=== PATIENT | female | born 1965 | race Caucasian/White ===

== ENCOUNTER 2020-09-21 17:40 | Observation (INO) | payer BC ==
[2020-09-21] MEDS ORDERED: cefOXitin 2 GM in Premix Bag 1 BAG IV ONE (21:04)
--- NOTE | 2020-09-21 21:11 | PCM.HP.2 ---
H&P History of Present Illness - General Date of Service: 09/21/20 Admit Problem/Dx: Admission Diagnosis/Problem Admission Diagnosis/Problem Appendicitis Source of Information: Patient, Family History Limitations: Reports: No Limitations - History of Present Illness Initial Comments - Free Text/Narative: Patient is a 55-year-old female who was seen in the emergency room in [place] earlier today complaining of right lower quadrant pain. She has been having trouble with diarrhea for the last 2-3 weeks. That started after she had been placed on Augmentin. She normally has trouble with alternating diarrhea and constipation. This morning when she awakened she stated the pain migrated to the right lower quadrant and has remained there all day. She denies any fever, chills, nausea or vomiting. She has still been having some diarrheal stools. She does note pain on ambulation and states that the pain was more intense as they were traveling to [place] if they hit a bump in the road. She has never had anything like this in the past. Onset of Symptoms: Reports: Today Duration of Symptoms: Reports: Getting Worse Location: Reports: Abdomen Quality: Reports: Pressure, Throbbing Severity: Moderate Improves with: Reports: Rest Worsens with: Reports: Movement Context: Denies: Sick Contact Associated Symptoms: Reports: Other (Diarrhea). Denies: Confusion, Chest Pain, Fever/Chills, Nausea/Vomiting - Related Data Allergies/Adverse Reactions: Allergies Allergy/AdvReac Type Severity Reaction Status Date / Time No Known Allergies Allergy Verified 09/21/20 20:40 Home Medications: Home Meds Biotin/Calcium Carbonate [Biotin 800 MCG] 1 each PO DAILY 09/21/20 [History] Econazole [Spectazole 1% Crm] 85 gm TOP BID 09/21/20 [History] Estradiol/Norethindrone Acet [Amabelz 0.5 mg-0.1 mg Tablet] 1 each PO ASDIRECTED 09/21/20 [History] Pantoprazole [ProTONIX] 40 mg PO DAILY 09/21/20 [History] atorvaSTATin [Lipitor] 10 mg PO BEDTIME 09/21/20 [History] Past Medical History Cardiovascular History: Reports: High Cholesterol Other OB/BYN History: Patient has had 2 or 3 D&Cs, for miscarriages. - Past Surgical History Female Surgical History: Reports: Dilitation & Evacuation Social & Family History - Tobacco Use Tobacco Use Status *Q: Never Tobacco User - Alcohol Use Alcohol Use History: Yes Alcohol Use Frequency: Socially H&P Review of Systems - Review of Systems: Review Of Systems: See Below General: Denies: Fever, Chills, Malaise, Weakness, Decreased Appetite HEENT: Reports: No Symptoms Pulmonary: Denies: Shortness of Breath, Wheezing Cardiovascular: Denies: Chest Pain, Palpitations Gastrointestinal: Reports: Abdominal Pain, Diarrhea, Decreased Appetite. Denies: Anorexia, Nausea, Vomiting Genitourinary: Denies: Dysuria, Frequency, Burning, Pain, Urgency Musculoskeletal: Reports: No Symptoms Skin: Reports: No Symptoms Psychiatric: Reports: Anxiety. Denies: Confusion, Depression Neurological: Reports: No Symptoms Hematologic/Lymphatic: Reports: No Symptoms Immunologic: Reports: No Symptoms Exam - Exam Exam: See Below - Exam Quality Assessment: No: Supplemental Oxygen, Central Line/PICC, Urinary Catheter General: Alert, Oriented, Cooperative, Mild Distress HEENT: Conjunctiva Clear, Nares Patent, Pupils Equal, Pupils Reactive, PERRLA. No: Scleral Icterus Neck: Supple, Trachea Midline Lungs: Clear to Auscultation, Normal Respiratory Effort. No: Wheezing Cardiovascular: Regular Rate, Regular Rhythm, Normal S1, Normal S2. No: Tachycardia GI/Abdominal Exam: Normal Bowel Sounds, Soft, No Distention, Rebound, Tender. No: Guarding, Rigid (Female) Exam: Deferred Rectal (Female) Exam: Deferred Back Exam: Normal Inspection, Full Range of Motion Extremities: Normal Inspection, Normal Range of Motion, Non-Tender, No Pedal Edema Peripheral Pulses: 4+: Posterior Tibial (L), Posterior Tibial (R), Dorsalis Pedis (L), Dorsalis Pedis (R) Skin: Warm, Dry, Intact Neuro Extensive - Mental Status: Alert, Oriented x3, Normal Mood/Affect, Normal Cognition Psychiatric: Alert, Normal Affect, Normal Mood - Problem List (1) Appendicitis SNOMED Code(s): 59357101 ICD Code: K37 - UNSPECIFIED APPENDICITIS Status: Acute Priority: High Qualifiers: Appendicitis type: acute appendicitis Acute appendicitis type: with localized peritonitis Appendicitis gangrene presence: unspecified whether gangrene present Appendicitis abscess presence: without abscess Problem List Initiated/Reviewed/Updated: Yes Orders Last 24hrs: Active Orders 24 hr Category Date Time Status Patient Status [ADT] Routine ADT 09/21/20 21:03 Ordered Antiembolic Devices [RC] PER UNIT ROUTINE Care 09/21/20 21:02 Ordered Insert Urinary Catheter [OM.PC] Timed Care 09/21/20 21:02 Ordered Oxygen Therapy [RC] ASDIRECTED Care 09/21/20 21:02 Ordered RT Incentive Spirometry [RC] Q1HWA Care 09/21/20 21:02 Ordered Skin Preparation [RC] .PREOP Care 09/21/20 21:02 Ordered Urinary Catheter Assessment [RC] ASDIRECTED Care 09/21/20 21:02 Ordered Urinary Catheter Assessment [RC] ASDIRECTED Care 09/21/20 21:02 Ordered Urinary Catheter Assessment [RC] ASDIRECTED Care 09/21/20 21:02 Ordered Vital Signs [RC] PER UNIT ROUTINE Care 09/21/20 21:02 Ordered Nothing Per Oral Diet [DIET] Diet 09/21/20 Dinner Ordered Lactated Ringers @ 125 MLS/HR(1000ml) Med 09/21/20 21:15 Ordered Lactated Ringers [Ringers, Lactated] 1,000 ml IV ASDIRECTED Morphine Med 09/21/20 21:05 Ordered See Dose Instructions IVPUSH Q1H PRN Ondansetron [Zofran] Med 09/21/20 21:06 Ordered 4 mg IVPUSH Q6H PRN cefOXitin [Mefoxin in Dextrose,Iso-Osm 2 GM/50 ML] 2 gm Med 09/21/20 21:04 Ordered Premix Bag 1 bag IV ONETIME cefOXitin [Mefoxin] 1 gm Med 09/22/20 03:00 Ordered Sodium Chloride 0.9% [Normal Saline] 50 ml IV Q6HR Antiembolic Hose [OM.PC] Routine Oth 09/21/20 21:02 Ordered Resuscitation Status Routine Resus Stat 09/21/20 21:[address] scan of the abdomen has personally been reviewed. There is thickening of the appendix with some mild periappendiceal fat stranding. I did not see any appendicolith or fluid around the appendix. No fluid noted in the pelvis. Despite her normal white count. Her examination is very consistent with an early acute appendicitis. Assessment/Plan Comment:: Laparoscopic appendectomy, possible open appendectomy. Both operative procedures, along with the risks, including, but not limited to, bleeding, infection, pneumonia, deep venous thrombosis, pulmonary emboli, myocardial infarction, and adjacent organ injury have been reviewed with the patient who voices understanding, offers no questions and agrees to proceed. We have also discussed the possibility of treating this with antibiotics to see if she resolves. Discussed the fact that there is a 20-25% chance that she would require an appendectomy within the next year. She underwent wish to pr oceed with an appendectomy, which will be done tomorrow morning. Patient will be started on antibiotics and given morphine for pain control tonight. - Mortality Measure Prognosis:: Good
[2020-09-21] MEDS ORDERED: Lactated Ringers 1,000 ML IV SCH (21:15)
[2020-09-21] MEDS: Ondansetron 4 MG/2 ML SDV IVPUSH PRN (22:32)
[2020-09-21] MEDS: Morphine 4 MG/ML Syringe IVPUSH PRN (22:36)
[2020-09-22] MEDS: Morphine 4 MG/ML Syringe IVPUSH PRN (01:32)
[2020-09-22] MEDS ORDERED: cefOXitin 1 GM in Premix Bag 1 BAG IV SCH (03:00)
[2020-09-22] MEDS ORDERED: Sugammadex Sodium 200 MG/2 ML VIAL ONE (06:21)
[2020-09-22] MEDS ORDERED: Midazolam 1 MG/ML 2 ML SDV ONE (06:23)
[2020-09-22] MEDS ORDERED: fentaNYL 250 MCG/5 ML SDV ONE (06:23)
[2020-09-22] MEDS ORDERED: Propofol 200 MG/20 ML SDV ONE (06:23)
[2020-09-22] MEDS ORDERED: ceFAZolin 1 GM Vial ONE (06:30)
[2020-09-22] MEDS ORDERED: Bupivacaine 0.5% 10 ML SDV ONE (06:30)
[2020-09-22] MEDS ORDERED: Rocuronium Bromide 50 MG/5 ML Syringe ONE ×2 (06:48→06:49)
[2020-09-22] MEDS ORDERED: Lidocaine 2% 5 ML SDV ONE (06:49)
[2020-09-22] MEDS ORDERED: Ondansetron 4 MG/2 ML SDV ONE (06:49)
[2020-09-22] MEDS ORDERED: Ketorolac 30 MG/ML SDV ONE (06:49)
[2020-09-22] MEDS ORDERED: Glycopyrrolate 0.2 MG/ML SDV ONE (06:49)
[2020-09-22] MEDS ORDERED: Acetaminophen 1,000 MG in Premix Bag 1 BAG IV PRN (06:57)
[2020-09-22] MEDS ORDERED: fentaNYL 100 MCG/2 ML SDV IVPUSH PRN (06:57)
--- NOTE | 2020-09-22 06:57 | PCM.PREANE ---
Preanesthetic Assessment - Anesthesia/Transfusion/Family Hx Anesthesia History: Prior Anesthesia Without Reaction Other Type of Anesthesia Reaction Comment: Nausea Family History of Anesthesia Reaction: No Transfusion History: No Prior Transfusion(s) - Review of Systems Gastrointestinal: Abdominal Pain, Nausea - Physical Assessment NPO Status Date: 09/22/20 NPO Status Time: 00:05 Vital Signs: Last Vital Signs Temp 36.8 C 09/22/20 03:17 Pulse 81 09/22/20 03:17 Resp 18 09/22/20 03:17 BP 136/76 09/22/20 03:17 Pulse Ox 96 09/22/20 03:17 Height: 1.63 m Weight: 67.404 kg ASA Class: 2E - Allergies Allergies/Adverse Reactions: Allergies Allergy/AdvReac Type Severity Reaction Status Date / Time No Known Allergies Allergy Verified 09/21/20 23:48 - Acknowledgements Anesthesia Type Planned: General Anesthesia Pt an Appropriate Candidate for the Planned Anesthesia: Yes Alternatives and Risks of Anesthesia Discussed w Pt/Guardian: Yes Pt/Guardian Understands and Agrees with Anesthesia Plan: Yes PreAnesthesia Questionnaire Cardiovascular History: Reports: High Cholesterol Gastrointestinal History: Reports: GERD Other OB/BYN History: Patient has had 2 or 3 D&Cs, for miscarriages. - Past Surgical History Female Surgical History: Reports: Dilitation & Evacuation - SUBSTANCE USE Tobacco Use Status *Q: Never Tobacco User Recreational Drug Use History: No - HOME MEDS Home Medications: Home Meds Biotin/Calcium Carbonate [Biotin 800 MCG] 1 each PO DAILY 09/21/20 [History] Econazole [Spectazole 1% Crm] 85 gm TOP BID 09/21/20 [History] Estradiol/Norethindrone Acet [Amabelz 0.5 mg-0.1 mg Tablet] 1 each PO ASDIRECTED 09/21/20 [History] Pantoprazole [ProTONIX] 40 mg PO DAILY 09/21/20 [History] atorvaSTATin [Lipitor] 10 mg PO BEDTIME 09/21/20 [History] - CURRENT (IN HOUSE) MEDS Current Meds: Current Medications Lactated Ringer's (Ringers, Lactated) 1,000 mls @ 125 mls/hr IV ASDIRECTED LILA Last Admin: 09/21/20 23:15 Dose: 125 mls/hr Documented by: Cefoxitin Sodium 1 gm/ Premix 50 mls @ 100 mls/hr IV Q6H [facility] Stop: 09/22/20 21:29 Last Admin: 09/22/20 03:19 Dose: 100 mls/hr Documented by: Morphine Sulfate (Morphine 4 Mg/Ml Syringe) 0 mg IVPUSH Q1H PRN PRN Reason: Pain (severe 7-10) Last Admin: 09/22/20 01:32 Dose: 2 mg Documented by: Ondansetron HCl (Ondansetron 4 Mg/2 Ml Sdv) 4 mg IVPUSH Q6H PRN PRN Reason: Nausea/Vomiting Last Admin: 09/21/20 22:32 Dose: 4 mg Documented by: Discontinued Medications Bupivacaine HCl (Bupivacaine 0.5% 10 Ml Sdv) Confirm Administered Dose 10 ml .ROUTE .STK-MED ONE Stop: 09/22/20 06:31 Cefazolin Sodium (Cefazolin 1 Gm Vial) Confirm Administered Dose 1 gm .ROUTE .STK-MED ONE Stop: 09/22/20 06:31 Fentanyl (Fentanyl 250 Mcg/5 Ml Sdv) Confirm Administered Dose 250 mcg .ROUTE .STK-MED ONE Stop: 09/22/20 06:24 Glycopyrrolate (Glycopyrrolate 0.2 Mg/Ml Sdv) Confirm Administered Dose 0.2 mg .ROUTE .STK-MED ONE Stop: 09/22/20 06:50 Cefoxitin Sodium 2 gm/ Premix 50 mls @ 100 mls/hr IV ONETIME ONE Stop: 09/21/20 21:33 Last Admin: 09/21/20 22:25 Dose: 100 mls/hr Documented by: Cefoxitin Sodium 1 gm/ Sodium (Chloride) 50 mls @ 100 mls/hr IV Q6HR [facility] Stop: 09/22/20 18:29 Ketorolac Tromethamine (Ketorolac 30 Mg/Ml Sdv) Confirm Administered Dose 30 mg .ROUTE .STK-MED ONE Stop: 09/22/20 06:50 Lidocaine (Lidocaine 2% 5 Ml Sdv) Confirm Administered Dose 5 ml .ROUTE .STK-MED ONE Stop: 09/22/20 06:50 Midazolam HCl (Midazolam 1 Mg/Ml 2 Ml Sdv) Confirm Administered Dose 2 mg .ROUTE .STK-MED ONE Stop: 09/22/20 06:24 Ondansetron HCl (Ondansetron 4 Mg/2 Ml Sdv) Confirm Administered Dose 4 mg .ROUTE .STK-MED ONE Stop: 09/22/20 06:50 Propofol (Propofol 200 Mg/20 Ml Sdv) Confirm Administered Dose 200 mg .ROUTE .STK-MED ONE Stop: 09/22/20 06:24 Rocuronium [place] (Rocuronium [place] 50 Mg/5 Ml Syringe) Confirm Administered Dose 50 mg .ROUTE .[employer]-MED ONE Stop: 09/22/20 06:49 Rocuronium [place] (Rocuronium [place] 50 Mg/5 Ml Syringe) Confirm Administered Dose 50 mg .ROUTE .[employer]-MED ONE Stop: 09/22/20 06:50 Sugammadex Sodium (Sugammadex Sodium 200 Mg/2 Ml Vial) Confirm Administered Dose 200 mg .ROUTE .STFlittoMED ONE Stop: 09/22/20 06:22
[2020-09-22] MEDS ORDERED: HYDROmorphone 2 MG/ML Syringe ONE (07:16)
[2020-09-22] MEDS ORDERED: Morphine 4 MG/ML Syringe IVPUSH PRN (08:31)
[2020-09-22] MEDS ORDERED: Acetaminophen/HYDROcodone 325-5 MG Tab PO PRN (08:31)
--- NOTE | 2020-09-22 08:37 | PCM.OPNOTE ---
- General Post-Op/Procedure Note Date of Surgery/Procedure: 09/22/20 Operative Procedure(s): Laparoscopic appendectomy Pre Op Diagnosis: Acute abdomen Post-Op Diagnosis: Acute appendicitis with localized peritonitis Anesthesia Technique: General ET Tube (ASA IIE) Primary Surgeon: Dayton Gonzalez Jewelry Dipper: Nati Bhatt Fluid Replacement, Intraop: 1,500 Output, Urine Amount: 50 EBL in mLs: 5 Condition: Good Free Text/Narrative:: Intake & Output 09/21/20 09/22/20 09/22/20 19:59 03:59 11:59 Intake Total 50 250 Output Total 650 Balance 50 -400 DICTATION [id number] CPT CODE [id number]
--- NOTE | 2020-09-22 08:43 | PCM.POSTAN ---
POST ANESTHESIA ASSESSMENT - MENTAL STATUS Mental Status: Alert, Oriented - VITAL SIGNS Vital Signs: Last Vital Signs Temp 98.2 F 09/22/20 03:17 Pulse 81 09/22/20 03:17 Resp 18 09/22/20 03:17 BP 136/76 09/22/20 03:17 Pulse Ox 96 09/22/20 03:17 - RESPIRATORY Respiratory Status: Respiratory Rate WNL, Airway Patent, O2 Saturation Stable - CARDIOVASCULAR CV Status: Pulse Rate WNL, Blood Pressure Stable - GASTROINTESTINAL GI Status: No Symptoms - PAIN Pain Score: 0 - POST OP HYDRATION Hydration Status: Adequate & Stable
[2020-09-22] MEDS: Ondansetron 4 MG/2 ML SDV IVPUSH PRN ×3 (09:04→19:37)
[2020-09-22] MEDS: cefOXitin 1 GM in Premix Bag 1 BAG IV SCH ×2 (09:11→18:13)
--- NOTE | 2020-09-22 10:35 | OR ---
SURGEON: Dayton Gonzalez M.D. DATE OF PROCEDURE: 09/22/2020 OPERATION PERFORMED: Laparoscopic appendectomy. PRIMARY SURGEON: Dayton Gonzalez M.D. 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 ANESTHESIA: General endotracheal. ASA CLASSIFICATION: IIE. PREOPERATIVE DIAGNOSIS: Acute abdomen with early appendicitis. POSTOPERATIVE DIAGNOSIS: Early acute appendicitis without perforation. INTRAOPERATIVE FLUIDS: 1500 mls EBL: 5 ml URINE OUTPUT 50 mls. DESCRIPTION OF PROCEDURE: The patient was taken to the operating room and placed on the operating table in the supine position. A time-out was called for appropriate identification of the patient and procedure. Sequential compression boots were placed. Following satisfactory attainment of general endotracheal anesthesia, a Leo catheter was placed in the patient's urinary bladder. The abdomen was prepped with DuraPrep solution and sterile drapes were applied. The skin just above the umbilicus was infiltrated with 0.5% Marcaine solution. A skin incision was then made and hemostasis obtained with the use of electrocautery. The Veress needle was introduced into the peritoneal cavity. The saline drop test was positive. Carbon dioxide pneumoperitoneum was established with the release set at 13 cm of water. Once a satisfactory pneumoperitoneum was established, 5 mm camera and port were placed through the supraumbilical incision. The patient was now positioned with her head down and rolled to the left. Under camera vision, 12 mm suprapubic and 5 mm left lower quadrant ports were placed. Each incision was preemptively infiltrated with 0.5% Marcaine solution. The appendix was tacked all along the lateral wall and adhesions were taken down. This does appear to be an early appendicitis, although no gangrenous changes were noted, and there was no perforation. The mesoappendix was taken down with a Harmonic scalpel. The appendix was then transected with the Endo-RADHA with a blue load staple, and promptly placed in an EndoCatch bag. The right lower quadrant was inspected for hemostasis and no bleeding was noted. The right lower quadrant was irrigated with sterile saline solution and all fluid was aspirated. Brief examination of the pelvis did not reveal any other abnormalities. With that accomplished, the Endo Catch containing the appendix was removed through the suprapubic port. The port was removed along with the specimen. The left lower quadrant port was then removed under camera vision and finally the supraumbilical camera and port were removed. Wounds were inspected for hemostasis and small bleeding sites were electrocoagulated. All incisions were closed in 2 layers approximating the subcutaneous tissue with 0 Vicryl, and the skin with subcuticular 4-0 Monocryl. Incisions were Steri-Stripped and dressed with sterile Tegaderm pads. Sponge, needle, and instrument counts were all correct. The Leo catheter was removed prior to emergence from anesthesia. Following emergence from anesthesia and extubation, the patient was taken to the recovery room in satisfactory condition. HARSHAD PETERS /[id number] JULIET
[2020-09-22] MEDS: Lactated Ringers 1,000 ML IV SCH (10:45)
[2020-09-22] MEDS ORDERED: Diltiazem 25 MG/5 ML SDV IVPUSH ONE (13:55)
--- NOTE | 2020-09-22 13:59 | PCM.CONS ---
H&P History of Present Illness - General Date of Service: 09/22/20 Admit Problem/Dx: Admission Diagnosis/Problem Admission Diagnosis/Problem Appendicitis Source of Information: Patient History Limitations: Reports: No Limitations - History of Present Illness Initial Comments - Free Text/Narative: This 55-year-old male with past medical history of HLD and GERD presented to the ER last evening with right lower quadrant pain. She was found to have early appendicitis and was taken to the OR today with Dr. Gonzalez for appendectomy. Postop period has been otherwise uneventful until this afternoon. Patient started complaining of mild nausea along with palpitations and anxiety feelings. Heart rate was noted to be elevated in 120s to 130s. EKG was obtained and revealed new onset atrial fibrillation. No prior EKG noted in chart. Patient heart rate previous to surgery and immediate postop. Appears to be sinus rhythm in the 60s to 70s. She denies any current chest pain or shortness of breath. Has feelings of nausea uneasiness and anxiety. Denies any abdominal pain. She has been urinating well. She did report diarrhea a couple weeks ago which has kind of continued on into the last few days prior to starting to have lower abdominal pain. She denies any neurological deficits or concerns. She denies any tobacco use or recreational drug use. She reports she drinks 1 to 2 glasses of wine per night. Denies any concerns for withdrawal or tremors when she stops drinking. Hospitalist service consulted by Dr. Gonzalez for medical evaluation for new onset atrial fibrillation. Nishi reports that she has no history of thyroid disease, no diabetes or CAD. She reports that no significant family history of A. fib or other heart disease was noted. She did report that her father last year of a pulmonary embolism. She reports her mother has prediabetes. She reports she was recently started on cholesterol medication but otherwise has been fairly healthy. She reports she recently flew back to [place] from [place], and has been doing ok ay since then. PCP Dr. Machado Right Lower Abdomen Pain Score (Numeric/FACES): 2 - Related Data Allergies/Adverse Reactions: Allergies Allergy/AdvReac Type Severity Reaction Status Date / Time No Known Allergies Allergy Verified 09/21/20 23:48 Home Medications: Home Meds Biotin/Calcium Carbonate [Biotin 800 MCG] 1 each PO DAILY 09/21/20 [History] Estradiol/Norethindrone Acet [Amabelz 0.5 mg-0.1 mg Tablet] 1 tab PO DAILY 09/21/20 [History] Pantoprazole [ProTONIX] 40 mg PO BID 09/21/20 [History] atorvaSTATin [Lipitor] 10 mg PO BEDTIME 09/21/20 [History] ALPRAZolam [Alprazolam] 0.5 mg PO TID PRN 09/22/20 [History] Past Medical History Cardiovascular History: Reports: High Cholesterol. Denies: Afib, Blood Clots/VTE/DVT, CAD, Hypertension, UT, Stents Respiratory History: Reports: None. Denies: COPD, PE Gastrointestinal History: Reports: GERD Genitourinary History: Reports: None Other OB/BYN History: Patient has had 2 or 3 D&Cs, for miscarriages. Musculoskeletal History: Reports: None Neurological History: Reports: None. Denies: CVA, TIA Endocrine/Metabolic History: Denies: Diabetes, Type II, Hyperthyroidism, Hypothyroidism - Past Surgical History Cardiovascular Surgical History: Reports: None Respiratory Surgical History: Reports: None Female Surgical History: Reports: Dilitation & Evacuation Social & Family History - Family History Cardiac: Reports: Blood Clots/VTE/DVT (Father). Denies: Afib Endocrine/Metabolic: Reports: Diabetes, type II (Mother prediabetic) - Tobacco Use Tobacco Use Status *Q: Never Tobacco User - Caffeine Use Caffeine Use: Reports: Coffee - Recreational Drug Use Recreational Drug Use: No H&P Review of Systems - Review of Systems: Review Of Systems: See Below General: Reports: Malaise. Denies: Fever, Chills HEENT: Reports: No Symptoms. Denies: Headaches, Sinus Congestion, Sore Throat, Vertigo Pulmonary: Denies: Shortness of Breath, Cough Cardiovascular: Reports: Palpitations, Lightheadedness. Denies: Chest Pain, Dyspnea on Exertion, Edema Gastrointestinal: Reports: Nausea. Denies: Abdominal Pain, Diarrhea Genitourinary: Reports: No Symptoms. Denies: Dysuria, Frequency Musculoskeletal: Reports: No Symptoms. Denies: Neck Pain Skin: Reports: No Symptoms Psychiatric: Reports: Anxiety (Came on with palpitations) Neurological: Reports: No Symptoms Hematologic/Lymphatic: Reports: No Symptoms Immunologic: Reports: No Symptoms Exam - Exam Exam: See Below - Vital Signs Vital Signs: Last Vital Signs Temp 96.4 F L 09/22/20 11:44 Pulse 125 H 09/22/20 12:45 Resp 16 09/22/20 12:45 BP 161/96 H 09/22/20 12:45 Pulse Ox 98 09/22/20 12:45 Weight: 67.404 kg - Exam Quality Assessment: DVT Prophylaxis. No: Supplemental Oxygen General: Alert, Oriented, Cooperative HEENT: Conjunctiva Clear, Mucosa Moist & Molino, Posterior Pharynx Clear Lungs: Clear to Auscultation, Normal Respiratory Effort Cardiovascular: Irregular Rhythm, Tachycardia. No: Systolic Murmur GI/Abdominal Exam: Normal Bowel Sounds, Soft, Tender (Recent laparoscopic surgery incision sites intact no acute bleeding) Extremities: Normal Inspection, Normal Range of Motion, Non-Tender, No Pedal Edema Skin: Warm, Dry, Incision (3 lap sites to abdomen) Neuro Extensive - Mental Status: Alert, Oriented x3 Neuro Extensive - Motor, Sensory, Reflexes: CN II-XII Intact Psychiatric: Alert, Normal Affect, Normal Mood, Anxious - Patient Data Result Diagrams: 09/22/20 13:49 09/22/20 13:49 Sepsis Event Note - Evaluation Sepsis Screening Result: No Definite Risk - Focused Exam Vital Signs: Vital Signs Temp Pulse Resp BP Pulse Ox Pulse Ox 09/22/20 12:45 125 H 16 161/96 H 98 09/22/20 11:44 96.4 F L 63 14 160/77 H 95 09/22/20 11:00 96.2 F L 16 151/67 H 93 L 93 L 09/22/20 10:30 96.3 F L 64 18 148/73 H 90 L 09/22/20 10:07 96.7 F L 64 18 142/66 H 97 09/22/20 09:50 96.1 F L 117 H 18 141/69 H 96 09/22/20 09:35 97.2 F 70 16 140/69 92 L 09/22/20 09:21 96.6 F L 75 22 H 147/62 H 91 L 09/22/20 09:05 97.3 F 83 16 138/75 95 09/22/20 08:50 97.0 F 74 12 150/69 H 93 L 09/22/20 03:17 98.2 F 81 18 136/76 96 Consult PN Assessment/Plan POD#: 0 (1) New onset atrial fibrillation SNOMED Code(s): 68440031 Code(s): I48.91 - UNSPECIFIED ATRIAL FIBRILLATION Current Visit: Yes (2) Appendicitis SNOMED Code(s): 20509614 Code(s): K37 - UNSPECIFIED APPENDICITIS Priority: High Current Visit: No Qualifiers: Appendicitis type: acute appendicitis Acute appendicitis type: with locali zed peritonitis Appendicitis gangrene presence: unspecified whether gangrene present Appendicitis abscess presence: without abscess Problem List Initiated/Reviewed/Updated: Yes My Orders Last 24 Hours: My Active Orders 09/22/20 13:33 Telemetry Monitoring [Cardiac Monitoring] [RC] . DIRECTED 09/22/20 13:49 BASIC METABOLIC PANEL,BMP [CHEM] Routine CBC WITH AUTO DIFF [HEME] Routine MAGNESIUM [CHEM] Routine 09/22/20 13:56 Echo Comp wo Cont [US] Routine TROPONIN I [CHEM] Routine TSH [CHEM] Routine Plan: This 55-year-old female admitted with appendicitis status post appendectomy with new onset atrial fibrillation 1. Status post appendectomy -Orders per general surgery 2. New onset atrial fibrillation -We will obtain lab work including CBC, BMP, magnesium as well as troponin and TSH -EKG revealed A. fib with RVR rates 130s to 170s -We will give diltiazem 20 mg IV and converted a short time alter to SR. -Monitor on telemetry -Obtain echo -Concern for PE low at this time as patient is not hypoxic and does not have any chest pain we will continue to monitor closely. -[id number] score 0, will need aspirin as outpatient for stroke prevention. - K 3.9 and Mag 1.6, with afib will replete with 40 KCL IV and Mag 4 gm IV. - TSH 1.36 and troponin negative. - Zio patch on discharge. Case discussed with Dr Walker. Dr Gonzalez updated on care provided VTE prophylaxis: When deemed appropriate by general surgeon. Code Status: Full Code
[2020-09-22 14:41] LABS: BLOOD UREA NITROGEN,BUN 8 mg/dL (7.0-18.0); CARBON DIOXIDE,CO2 26.2 mmol/L (21.0-32.0); CHLORIDE,CL 94 mmol/L (98-107); GLUCOSE RANDOM 141 mg/dL (74-106); POTASSIUM,K 3.9 mmol/L (3.5-5.1); SODIUM,NA 129 mmol/L (136-145)
[2020-09-22] MEDS ORDERED: Magnesium Sulfate/Water 4 GM/100 ML BAG IV ONE (14:44)
[2020-09-22] MEDS ORDERED: Potassium Chloride Riders 40 MEQ in Premix Bag 1 BAG IV ONE (14:45)
[2020-09-22] MEDS ORDERED: Diltiazem 25 MG/5 ML SDV IVPUSH PRN (15:23)
[2020-09-22] MEDS: Pantoprazole 40 MG Tab.CR PO SCH (17:43)
[2020-09-22] MEDS ORDERED: Ondansetron 4 MG/2 ML SDV IVPUSH PRN (19:57)
[2020-09-23] MEDS: cefOXitin 1 GM in Premix Bag 1 BAG IV SCH (00:25)
[2020-09-23] MEDS: Lactated Ringers 1,000 ML IV SCH (00:26)
[2020-09-23 06:03] LABS: CARBON DIOXIDE,CO2 26.5 mmol/L (21.0-32.0)
[2020-09-23] MEDS: Pantoprazole 40 MG Tab.CR PO SCH ×2 (06:25→08:03)
--- NOTE | 2020-09-23 07:41 | PCM48HPAN ---
Post Anesthesia Note - EVALUATION WITHIN 48HRS OF ANESTHETIC Vital Signs in Normal Range: Yes Patient Participated in Evaluation: Yes Respiratory Function Stable: Yes Airway Patent: Yes Cardiovascular Function Stable: Yes Hydration Status Stable: Yes Pain Control Satisfactory: Yes Nausea and Vomiting Control Satisfactory: Yes Mental Status Recovered: Yes Vital Signs: Last Vital Signs Temp 37.1 C 09/23/20 04:26 Pulse 81 09/23/20 04:26 Resp 14 09/23/20 04:26 BP 140/72 09/23/20 04:26 Pulse Ox 95 09/23/20 04:26 - COMMENTS/OBSERVATIONS Free Text/Narrative:: States doing better today. Eating toast. States she had an episode of afib yesterday but that it converted with medication. Hoping to go home today.
--- NOTE | 2020-09-23 07:58 | PCM.CONSN ---
- General Info Date of Service: 09/23/20 Admission Dx/Problem (Free Text): Admission Diagnosis/Problem Admission Diagnosis/Problem Appendicitis Subjective Update: Doing well. No events overnight. Denies any chest pain or shortness of breath. Eager to go home today. Functional Status: Reports: Pain Controlled, Tolerating Diet, Ambulating, Urinating - Review of Systems General: Reports: No Symptoms. Denies: Fatigue, Malaise HEENT: Reports: No Symptoms Pulmonary: Reports: No Symptoms. Denies: Shortness of Breath Cardiovascular: Reports: No Symptoms. Denies: Chest Pain, Palpitations - Patient Data Vitals - Most Recent: Last Vital Signs Temp 98.6 F 09/23/20 07:51 Pulse 83 09/23/20 07:51 Resp 15 09/23/20 07:51 BP 143/75 H 09/23/20 07:51 Pulse Ox 96 09/23/20 07:51 Weight - Most Recent: 67.404 kg I&O - Last 24 Hours: Intake & Output 09/22/20 09/23/20 09/23/20 22:59 06:59 14:59 Intake Total 150 792 Output Total 2950 2580 Balance -2800 -1788 Lab Results Last 24 Hours: Laboratory Results - last 24 hr 09/22/20 09/22/20 09/22/20 Range/Units 13:49 13:49 13:49 WBC 7.76 (4.0-11.0) K/uL RBC 3.85 L (4.30-5.90) M/uL Hgb 12.4 (12.0-16.0) g/dL Hct 37.2 (36.0-46.0) % MCV 96.6 (80.0-98.0) fL MCH 32.2 H (27.0-32.0) pg MCHC 33.3 (31.0-37.0) g/dL RDW Std Deviation 46.5 (28.0-62.0) fl RDW Coeff of Christianne 13 (11.0-15.0) % Plt Count 156 (150-400) K/uL MPV 8.90 (7.40-12.00) fL Neut % (Auto) 87.6 H (48.0-80.0) % Lymph % (Auto) 6.6 L (16.0-40.0) % [place] % (Auto) 5.7 (0.0-15.0) % Eos % (Auto) 0.1 (0.0-7.0) % Baso % (Auto) 0.0 (0.0-1.5) % Neut # (Auto) 6.8 H (1.4-5.7) K/uL Lymph # (Auto) 0.5 L (0.6-2.4) K/uL [place] # (Auto) 0.4 (0.0-0.8) K/uL Eos # (Auto) 0.0 (0.0-0.7) K/uL Baso # (Auto) 0.0 (0.0-0.1) K/uL Nucleated RBC % 0.0 /100WBC Nucleated RBCs # 0 K/uL Sodium 129 L (136-145) mmol/L Potassium 3.9 (3.5-5.1) mmol/L Chloride 94 L (98-107) mmol/L Carbon Dioxide 26.2 (21.0-32.0) mmol/L BUN 8 (7.0-18.0) mg/dL Creatinine 0.9 (0.6-1.0) mg/dL Est Cr Clr Drug Dosing 60.71 mL/min Estimated GFR (MDRD) > 60.0 ml/min Glucose 141 H (74-106) mg/dL Calcium 8.4 L (8.5-10.1) mg/dL Phosphorus (2.6-4.7) mg/dL Magnesium 1.6 L (1.8-2.4) mg/dL Troponin I < 0.050 (0.000-0.056) ng/mL TSH 3rd Generation 1.36 (0.36-3.74) uIU/mL 09/23/20 Range/Units 05:08 WBC (4.0-11.0) K/uL RBC (4.30-5.90) M/uL Hgb (12.0-16.0) g/dL Hct (36.0-46.0) % MCV (80.0-98.0) fL MCH (27.0-32.0) pg MCHC (31.0-37.0) g/dL RDW Std Deviation (28.0-62.0) fl RDW Coeff of Christianne (11.0-15.0) % Plt Count (150-400) K/uL MPV (7.40-12.00) fL Neut % (Auto) (48.0-80.0) % Lymph % (Auto) (16.0-40.0) % [place] % (Auto) (0.0-15.0) % Eos % (Auto) (0.0-7.0) % Baso % (Auto) (0.0-1.5) % Neut # (Auto) (1.4-5.7) K/uL Lymph # (Auto) (0.6-2.4) K/uL [place] # (Auto) (0.0-0.8) K/uL Eos # (Auto) (0.0-0.7) K/uL Baso # (Auto) (0.0-0.1) K/uL Nucleated RBC % /100WBC Nucleated RBCs # K/uL Sodium 136 (136-145) mmol/L Potassium 4.0 (3.5-5.1) mmol/L Chloride 102 (98-107) mmol/L Carbon Dioxide 26.5 (21.0-32.0) mmol/L BUN 9 (7.0-18.0) mg/dL Creatinine 1.1 H (0.6-1.0) mg/dL Est Cr Clr Drug Dosing 49.67 mL/min Estimated GFR (MDRD) 51.4 ml/min Glucose 95 (74-106) mg/dL Calcium 8.3 L (8.5-10.1) mg/dL Phosphorus 2.9 (2.6-4.7) mg/dL Magnesium 3.1 H (1.8-2.4) mg/dL Troponin I (0.000-0.056) ng/mL TSH 3rd Generation (0.36-3.74) uIU/mL Med Orders - Current: Current Medications Hydrocodone Bitart/Acetaminophen (Acetaminophen/Hydrocodone 325-5 Mg Tab) 1 tab PO Q6H PRN PRN Reason: Pain (moderate 4-6) Diltiazem HCl (Diltiazem 25 Mg/5 Ml Sdv) 10 mg IVPUSH Q4H PRN PRN Reason: Afib HR>130 Lactated Ringer's (Ringers, Lactated) 1,000 mls @ 125 mls/hr IV ASDIRECTED [facility] Last Admin: 09/23/20 00:26 Dose: 125 mls/hr Documented by: Morphine Sulfate (Morphine 4 Mg/Ml Syringe) 2 - 4 mg IVPUSH Q1H PRN PRN Reason: Pain (severe 7-10) Ondansetron HCl (Ondansetron 4 Mg/2 Ml Sdv) 4 mg IVPUSH Q4H PRN PRN Reason: Nausea/Vomiting Pantoprazole Sodium (Pantoprazole 40 Mg Tab.Cr) 40 mg PO BIDAC [facility] Last Admin: 09/23/20 06:25 Dose: 40 mg Documented by: Discontinued Medications Bupivacaine HCl (Bupivacaine 0.5% 10 Ml Sdv) Confirm Administered Dose 10 ml .ROUTE .STK-MED ONE Stop: 09/22/20 06:31 Cefazolin Sodium (Cefazolin 1 Gm Vial) Confirm Administered Dose 1 gm .ROUTE .STK-MED ONE Stop: 09/22/20 06:31 Diltiazem HCl (Diltiazem 25 Mg/5 Ml Sdv) 20 mg IVPUSH ONETIME ONE Stop: 09/22/20 13:56 Last Admin: 09/22/20 14:06 Dose: 20 mg Documented by: Fentanyl (Fentanyl 250 Mcg/5 Ml Sdv) Confirm Administered Dose 250 mcg .ROUTE .STK-MED ONE Stop: 09/22/20 06:24 Fentanyl (Fentanyl 100 Mcg/2 Ml Sdv) 50 mcg IVPUSH Q5M PRN PRN Reason: Pain Glycopyrrolate (Glycopyrrolate 0.2 Mg/Ml Sdv) Confirm Administered Dose 0.2 mg .ROUTE .STK-MED ONE Stop: 09/22/20 06:50 Hydromorphone HCl (Hydromorphone 2 Mg/Ml Syringe) Confirm Administered Dose 2 mg .ROUTE .STK-MED ONE Stop: 09/22/20 07:17 Cefoxitin Sodium 2 gm/ Premix 50 mls @ 100 mls/hr IV ONETIME ONE Stop: 09/21/20 21:33 Last Admin: 09/21/20 22:25 Dose: 100 mls/hr Documented by: Lactated Ringer's (Ringers, Lactated) 1,000 mls @ 125 mls/hr IV ASDIRECTED [facility] Last Admin: 09/21/20 23:15 Dose: 125 mls/hr Documented by: Cefoxitin Sodium 1 gm/ Sodium (Chloride) 50 mls @ 100 mls/hr IV Q6HR [facility] Stop: 09/22/20 18:29 Cefoxitin Sodium 1 gm/ Premix 50 mls @ 100 mls/hr IV Q6H [facility] Stop: 09/22/20 21:29 Last Admin: 09/22/20 03:19 Dose: 100 mls/hr Documented by: Acetaminophen 1,000 mg/ Premix 100 mls @ 400 mls/hr IV Q6H PRN PRN Reason: Pain Last Admin: 09/22/20 08:26 Dose: 400 mls/hr Documented by: Cefoxitin Sodium 1 gm/ Premix 50 mls @ 100 mls/hr IV Q8H [facility] Stop: 09/23/20 01:14 Last Admin: 09/23/20 00:25 Dose: 100 mls/hr Documented by: Magnesium Sulfate (Magnesium Sulfate In Water 4 Gm/100 Ml) 4 gm in 100 mls @ 33.333 mls/hr IV ONETIME ONE Stop: 09/22/20 17:43 Last Admin: 09/22/20 15:00 Dose: 33.333 mls/hr Documented by: Potassium Chloride 40 meq/ (Premix) 100 mls @ 25 mls/hr IV ONETIME ONE Stop: 09/22/20 18:44 Last Admin: 09/22/20 18:54 Dose: 25 mls/hr Documented by: Ketorolac Tromethamine (Ketorolac 30 Mg/Ml Sdv) Confirm Administered Dose 30 mg .ROUTE .STK-MED ONE Stop: 09/22/20 06:50 Lidocaine (Lidocaine 2% 5 Ml Sdv) Confirm Administered Dose 5 ml .ROUTE .STK-MED ONE Stop: 09/22/20 06:50 Midazolam HCl (Midazolam 1 Mg/Ml 2 Ml Sdv) Confirm Administered Dose 2 mg .ROUTE .STK-MED ONE Stop: 09/22/20 06:24 Morphine Sulfate (Morphine 4 Mg/Ml Syringe) 0 mg IVPUSH Q1H PRN PRN Reason: Pain (severe 7-10) Stop: 09/22/20 08:46 Last Admin: 09/22/20 01:32 Dose: 2 mg Documented by: Ondansetron HCl (Ondansetron 4 Mg/2 Ml Sdv) 4 mg IVPUSH Q6H PRN PRN Reason: Nausea/Vomiting Last Admin: 09/22/20 19:37 Dose: 4 mg Documented by: Ondansetron HCl (Ondansetron 4 Mg/2 Ml Sdv) Confirm Administered Dose 4 mg .ROUTE .STK-MED ONE Stop: 09/22/20 06:50 Propofol (Propofol 200 Mg/20 Ml Sdv) Confirm Administered Dose 200 mg .ROUTE .STK-MED ONE Stop: 09/22/20 06:24 Rocuronium Nunica (Rocuronium [place] 50 Mg/5 Ml Syringe) Confirm Administered Dose 50 mg .ROUTE .STK-MED ONE Stop: 09/22/20 06:49 Rocuronium [place] (Rocuronium [place] 50 Mg/5 Ml Syringe) Confirm Administered Dose 50 mg .ROUTE .STK-MED ONE Stop: 09/22/20 06:50 Sugammadex Sodium (Sugammadex Sodium 200 Mg/2 Ml Vial) Confirm Administered Dose 200 mg .ROUTE .STK-MED ONE Stop: 09/22/20 06:22 - Exam General: Alert, Oriented, Cooperative Neck: Supple Lungs: Clear to Auscultation, Normal Respiratory Effort Cardiovascular: Regular Rate, Regular Rhythm GI/Abdominal Exam: Normal Bowel Sounds, Soft Extremities: Normal Inspection, Normal Range of Motion, Non-Tender, No Pedal Edema Neurological: No New Focal Deficit Psy/Mental Status: Alert, Normal Affect, Normal Mood Sepsis Event Note - Evaluation Sepsis Screening Result: No Definite Risk - Focused Exam Vital Signs: Vital Signs Temp Pulse Resp BP Pulse Ox 09/23/20 07:51 98.6 F 83 15 143/75 H 96 09/23/20 04:26 98.8 F 81 14 140/72 95 09/23/20 00:33 96.7 F L 77 16 141/76 H 97 Consult PN Assessment/Plan POD#: 1 (1) New onset atrial fibrillation SNOMED Code(s): 61847111 Code(s): I48.91 - UNSPECIFIED ATRIAL FIBRILLATION Current Visit: Yes (2) Appendicitis SNOMED Code(s): 09373276 Code(s): K37 - UNSPECIFIED APPENDICITIS Priority: High Current Visit: No Qualifiers: Appendicitis type: acute appendicitis Acute appendicitis type: with localized peritonitis Appendicitis gangrene presence: unspecified whether gangrene present Appendicitis perforation presence: without perforation Appendicitis abscess presence: without abscess Qualified Code(s): K35.30 - Acute appendicitis with localized peritonitis, without perforation or gangrene Problem List Initiated/Reviewed/Updated: Yes My Orders Last 24 Hours: My Active Orders 09/22/20 13:33 Telemetry Monitoring [Cardiac Monitoring] [] Q8H 09/22/20 13:56 Echo Comp wo Cont [US] Routine 09/22/20 15:23 Diltiazem 10 mg IVPUSH Q4H PRN Plan: This 55-year-old female admitted with appendicitis status post appendectomy with new onset atrial fibrillation 1. Status post appendectomy -Orders per general surgery 2. New onset atrial fibrillation - Echo pending upon discharge will make sure this is sent to PCP, Brock Machado in [place] for evaluation. - No events overnight no further need for medication at this time. - Zio patch on discharge x14 days report to be sent to PCP. - Magnesium and potassium stable. VTE prophylaxis: When deemed appropriate by general surgeon. Code Status: Full Code
[2020-09-23] MEDS ORDERED: traMADol 50 MG Tab PO SCH (08:45)
--- NOTE | 2020-09-23 09:31 | PCM.DCSUM1 ---
Discharge Summary - Hospital Course Free Text/Narrative:: Patient is a 55-year-old female who presented to the hospital in [place] on Monday complaining of abdominal pain that had migrated to the right lower quadrant. She had been having diarrhea for several weeks and had been on Augmentin. She thought this was perhaps a reaction to that. Workup in [place] included a CT scan did show an acute appendicitis, although her white count was normal and she was afebrile. Surgical consultation was requested and the patient transferred to [place] for further evaluation and subsequent treatment. Brief History: see dictated history and physical Diagnosis: Stroke: No - Discharge Data Discharge Date: 09/23/20 Discharge Disposition: Home, Self-Care 01 Condition: Good - Referral to Home Health Primary Care Physician: Trent Machado Jr, PA-C - Discharge Diagnosis/Problem(s) (1) Appendicitis SNOMED Code(s): 02942575 ICD Code: K37 - UNSPECIFIED APPENDICITIS Status: Acute Priority: High Current Visit: No Qualifiers: Appendicitis type: acute appendicitis Acute appendicitis type: with localized peritonitis Appendicitis gangrene presence: unspecified whether gangrene present Appendicitis perforation presence: without perforation Appendicitis abscess presence: without abscess Qualified Code(s): K35.30 - Acute appendicitis with localized peritonitis, without perforation or gangrene (2) New onset atrial fibrillation SNOMED Code(s): 49376590 ICD Code: I48.91 - UNSPECIFIED ATRIAL FIBRILLATION Status: Acute Current Visit: Yes - Patient Summary/Data Operative Procedure(s) Performed: Laparoscopic appendectomy Consults: Consultations 09/22/20 13:05 Consult to Physician [CONS] Urgent - Patient Instructions Diet: Usual Diet as Tolerated Activity: No Lifting Over 25 Pounds (for 6 weeks) Driving: Do Not Drive (for 48 hours) Showering/Bathing: May Shower Wound/Incision Care: Keep Operative Site/Wound Site Clean and Dry Notify Provider of: Fever, Increased Pain Other/Special Instructions: Keep scheduled appointment with Dr. Gonzalez on October 06. Follow-up with Brock Machado regarding atrial fibrillation. Patient will have a Zio patch for 2 weeks. - Discharge Plan *PRESCRIPTION DRUG MONITORING PROGRAM REVIEWED*: No *COPY OF PRESCRIPTION DRUG MONITORING REPORT IN PATIENT MARIMAR: No Prescriptions/Med Rec: traMADol [Ultram] 50 mg PO Q8H 5 Days #15 tablet Home Medications: Home Meds Biotin/Calcium Carbonate [Biotin 800 MCG] 1 each PO DAILY 09/21/20 [History] Estradiol/Norethindrone Acet [Amabelz 0.5 mg-0.1 mg Tablet] 1 tab PO DAILY 09/21/20 [History] Pantoprazole [ProTONIX] 40 mg PO BID 09/21/20 [History] atorvaSTATin [Lipitor] 10 mg PO BEDTIME 09/21/20 [History] ALPRAZolam [Alprazolam] 0.5 mg PO TID PRN 09/22/20 [History] traMADol [Ultram] 50 mg PO Q8H 5 Days #15 tablet 09/23/20 [Rx] Patient Handouts: Laparoscopic Appendectomy, Adult, Care After Referrals: Dayton Gonzalez MD [Physician] - 10/06/20 2:15 pm - Discharge Summary/Plan Comment DC Time >30 min.: Yes - General Info Date of Service: 09/23/20 Admission Dx/Problem (Free Text: Acute appendicitis Subjective Update: Patient is feeling much better today. Postoperatively she did have new onset atrial fibrillation. Hospitalist consultation was obtained and the patient was treated with a single dose of diltiazem. This did convert her to a sinus rhythm. She has been followed on telemetry all night and had no further episodes of atrial fibrillation. Surgically, she is feeling much better. She does have some mild incisional discomfort. No nausea or vomiting. She also has a bit of a sore throat, most likely related to intubation. Functional Status: Reports: Pain Controlled, Tolerating Diet, Ambulating, Urin ating, Incentive Spirometry - Review of Systems General: Denies: Fever, Weakness, Fatigue, Malaise HEENT: Reports: No Symptoms Pulmonary: Denies: Shortness of Breath, Wheezing Cardiovascular: Denies: Chest Pain, Palpitations, Orthopnea, PND, Lightheadedness Gastrointestinal: Denies: Abdominal Pain, Constipation, Decreased Appetite, Diarrhea, Nausea, Vomiting Genitourinary: Denies: Dysuria, Frequency, Burning, Pain, Urgency Musculoskeletal: Reports: No Symptoms Skin: Reports: No Symptoms Neurological: Reports: No Symptoms Psychiatric: Reports: No Symptoms - Patient Data Vitals - Most Recent: Last Vital Signs Temp 98.6 F 09/23/20 07:51 Pulse 83 09/23/20 07:51 Resp 15 09/23/20 07:51 BP 143/75 H 09/23/20 07:51 Pulse Ox 96 09/23/20 07:51 Weight - Most Recent: 148 lb 9.606 oz I&O - Last 24 hours: Intake & Output 09/22/20 09/23/20 09/23/20 19:59 03:59 11:59 Intake Total 150 792 Output Total 2950 2580 Balance -2800 -1788 Lab Results - Last 24 hrs: Laboratory Results - last 24 hr 09/22/20 09/22/20 09/22/20 Range/Units 13:49 13:49 13:49 WBC 7.76 (4.0-11.0) K/uL RBC 3.85 L (4.30-5.90) M/uL Hgb 12.4 (12.0-16.0) g/dL Hct 37.2 (36.0-46.0) % MCV 96.6 (80.0-98.0) fL MCH 32.2 H (27.0-32.0) pg MCHC 33.3 (31.0-37.0) g/dL RDW Std Deviation 46.5 (28.0-62.0) fl RDW Coeff of Christianne 13 (11.0-15.0) % Plt Count 156 (150-400) K/uL MPV 8.90 (7.40-12.00) fL Neut % (Auto) 87.6 H (48.0-80.0) % Lymph % (Auto) 6.6 L (16.0-40.0) % [place] % (Auto) 5.7 (0.0-15.0) % Eos % (Auto) 0.1 (0.0-7.0) % Baso % (Auto) 0.0 (0.0-1.5) % Neut # (Auto) 6.8 H (1.4-5.7) K/uL Lymph # (Auto) 0.5 L (0.6-2.4) K/uL [place] # (Auto) 0.4 (0.0-0.8) K/uL Eos # (Auto) 0.0 (0.0-0.7) K/uL Baso # (Auto) 0.0 (0.0-0.1) K/uL Nucleated RBC % 0.0 /100WBC Nucleated RBCs # 0 K/uL Sodium 129 L (136-145) mmol/L Potassium 3.9 (3.5-5.1) mmol/L Chloride 94 L (98-107) mmol/L Carbon Dioxide 26.2 (21.0-32.0) mmol/L BUN 8 (7.0-18.0) mg/dL Creatinine 0.9 (0.6-1.0) mg/dL Est Cr Clr Drug Dosing 60.71 mL/min Estimated GFR (MDRD) > 60.0 ml/min Glucose 141 H (74-106) mg/dL Calcium 8.4 L (8.5-10.1) mg/dL Phosphorus (2.6-4.7) mg/dL Magnesium 1.6 L (1.8-2.4) mg/dL Troponin I < 0.050 (0.000-0.056) ng/mL TSH 3rd Generation 1.36 (0.36-3.74) uIU/mL 09/23/20 Range/Units 05:08 WBC (4.0-11.0) K/uL RBC (4.30-5.90) M/uL Hgb (12.0-16.0) g/dL Hct (36.0-46.0) % MCV (80.0-98.0) fL MCH (27.0-32.0) pg MCHC (31.0-37.0) g/dL RDW Std Deviation (28.0-62.0) fl RDW Coeff of Christianne (11.0-15.0) % Plt Count (150-400) K/uL MPV (7.40-12.00) fL Neut % (Auto) (48.0-80.0) % Lymph % (Auto) (16.0-40.0) % [place] % (Auto) (0.0-15.0) % Eos % (Auto) (0.0-7.0) % Baso % (Auto) (0.0-1.5) % Neut # (Auto) (1.4-5.7) K/uL Lymph # (Auto) (0.6-2.4) K/uL [place] # (Auto) (0.0-0.8) K/uL Eos # (Auto) (0.0-0.7) K/uL Baso # (Auto) (0.0-0.1) K/uL Nucleated RBC % /100WBC Nucleated RBCs # K/uL Sodium 136 (136-145) mmol/L Potassium 4.0 (3.5-5.1) mmol/L Chloride 102 (98-107) mmol/L Carbon Dioxide 26.5 (21.0-32.0) mmol/L BUN 9 (7.0-18.0) mg/dL Creatinine 1.1 H (0.6-1.0) mg/dL Est Cr Clr Drug Dosing 49.67 mL/min Estimated GFR (MDRD) 51.4 ml/min Glucose 95 (74-106) mg/dL Calcium 8.3 L (8.5-10.1) mg/dL Phosphorus 2.9 (2.6-4.7) mg/dL Magnesium 3.1 H (1.8-2.4) mg/dL Troponin I (0.000-0.056) ng/mL TSH 3rd Generation (0.36-3.74) uIU/mL Med Orders - Current: Current Medications Hydrocodone Bitart/Acetaminophen (Acetaminophen/Hydrocodone 325-5 Mg Tab) 1 tab PO Q6H PRN PRN Reason: Pain (moderate 4-6) Diltiazem HCl (Diltiazem 25 Mg/5 Ml Sdv) 10 mg IVPUSH Q4H PRN PRN Reason: Afib HR>130 Lactated Ringer's (Ringers, Lactated) 1,000 mls @ 125 mls/hr IV ASDIRECTED [facility] Last Admin: 09/23/20 00:26 Dose: 125 mls/hr Documented by: Morphine Sulfate (Morphine 4 Mg/Ml Syringe) 2 - 4 mg IVPUSH Q1H PRN PRN Reason: Pain (severe 7-10) Ondansetron HCl (Ondansetron 4 Mg/2 Ml Sdv) 4 mg IVPUSH Q4H PRN PRN Reason: Nausea/Vomiting Pantoprazole Sodium (Pantoprazole 40 Mg Tab.Cr) 40 mg PO BIDAC [facility] Last Admin: 09/23/20 08:03 Dose: Not Given Documented by: Tramadol HCl (Tramadol 50 Mg Tab) 50 mg PO Q6H [facility] Last Admin: 09/23/20 09:03 Dose: 50 mg Documented by: Discontinued Medications Bupivacaine HCl (Bupivacaine 0.5% 10 Ml Sdv) Confirm Administered Dose 10 ml .ROUTE .STK-MED ONE Stop: 09/22/20 06:31 Cefazolin Sodium (Cefazolin 1 Gm Vial) Confirm Administered Dose 1 gm .ROUTE .STK-MED ONE Stop: 09/22/20 06:31 Diltiazem HCl (Diltiazem 25 Mg/5 Ml Sdv) 20 mg IVPUSH ONETIME ONE Stop: 09/22/20 13:56 Last Admin: 09/22/20 14:06 Dose: 20 mg Documented by: Fentanyl (Fentanyl 250 Mcg/5 Ml Sdv) Confirm Administered Dose 250 mcg .ROUTE .STK-MED ONE Stop: 09/22/20 06:24 Fentanyl (Fentanyl 100 Mcg/2 Ml Sdv) 50 mcg IVPUSH Q5M PRN PRN Reason: Pain Glycopyrrolate (Glycopyrrolate 0.2 Mg/Ml Sdv) Confirm Administered Dose 0.2 mg .ROUTE .STK-MED ONE Stop: 09/22/20 06:50 Hydromorphone HCl (Hydromorphone 2 Mg/Ml Syringe) Confirm Administered Dose 2 mg .ROUTE .STK-MED ONE Stop: 09/22/20 07:17 Cefoxitin Sodium 2 gm/ Premix 50 mls @ 100 mls/hr IV ONETIME ONE Stop: 09/21/20 21:33 Last Admin: 09/21/20 22:25 Dose: 100 mls/hr Documented by: Lactated Ringer's (Ringers, Lactated) 1,000 mls @ 125 mls/hr IV ASDIRECTED [facility] Last Admin: 09/21/20 23:15 Dose: 125 mls/hr Documented by: Cefoxitin Sodium 1 gm/ Sodium (Chloride) 50 mls @ 100 mls/hr IV Q6HR [facility] Stop: 09/22/20 18:29 Cefoxitin Sodium 1 gm/ Premix 50 mls @ 100 mls/hr IV Q6H [facility] Stop: 09/22/20 21:29 Last Admin: 09/22/20 03:19 Dose: 100 mls/hr Documented by: Acetaminophen 1,000 mg/ Premix 100 mls @ 400 mls/hr IV Q6H PRN PRN Reason: Pain Last Admin: 09/22/20 08:26 Dose: 400 mls/hr Documented by: Cefoxitin Sodium 1 gm/ Premix 50 mls @ 100 mls/hr IV Q8H [facility] Stop: 09/23/20 01:14 Last Admin: 09/23/20 00:25 Dose: 100 mls/hr Documented by: Magnesium Sulfate (Magnesium Sulfate In Water 4 Gm/100 Ml) 4 gm in 100 mls @ 33.333 mls/hr IV ONETIME ONE Stop: 09/22/20 17:43 Last Admin: 09/22/20 15:00 Dose: 33.333 mls/hr Documented by: Potassium Chloride 40 meq/ (Premix) 100 mls @ 25 mls/hr IV ONETIME ONE Stop: 09/22/20 18:44 Last Admin: 09/22/20 18:54 Dose: 25 mls/hr Documented by: Ketorolac Tromethamine (Ketorolac 30 Mg/Ml Sdv) Confirm Administered Dose 30 mg .ROUTE .STK-MED ONE Stop: 09/22/20 06:50 Lidocaine (Lidocaine 2% 5 Ml Sdv) Confirm Administered Dose 5 ml .ROUTE .STK-MED ONE Stop: 09/22/20 06:50 Midazolam HCl (Midazolam 1 Mg/Ml 2 Ml Sdv) Confirm Administered Dose 2 mg .ROUTE .STK-MED ONE Stop: 09/22/20 06:24 Morphine Sulfate (Morphine 4 Mg/Ml Syringe) 0 mg IVPUSH Q1H PRN PRN Reason: Pain (severe 7-10) Stop: 09/22/20 08:46 Last Admin: 09/22/20 01:32 Dose: 2 mg Documented by: Ondansetron HCl (Ondansetron 4 Mg/2 Ml Sdv) 4 mg IVPUSH Q6H PRN PRN Reason: Nausea/Vomiting Last Admin: 09/22/20 19:37 Dose: 4 mg Documented by: Ondansetron HCl (Ondansetron 4 Mg/2 Ml Sdv) Confirm Administered Dose 4 mg .ROUTE .STK-MED ONE Stop: 09/22/20 06:50 Propofol (Propofol 200 Mg/20 Ml Sdv) Confirm Administered Dose 200 mg .ROUTE .STK-MED ONE Stop: 09/22/20 06:24 Rocuronium Gore (Rocuronium Gore 50 Mg/5 Ml Syringe) Confirm Administered Dose 50 mg .ROUTE .STK-MED ONE Stop: 09/22/20 06:49 Rocuronium Gore (Rocuronium Gore 50 Mg/5 Ml Syringe) Confirm Administered Dose 50 mg .ROUTE .STK-MED ONE Stop: 09/22/20 06:50 Sugammadex Sodium (Sugammadex Sodium 200 Mg/2 Ml Vial) Confirm Administered Dose 200 mg .ROUTE .STK-MED ONE Stop: 09/22/20 06:22 - Exam Quality Assessment: Reports: Supplemental Oxygen, DVT Prophylaxis. Denies: Central Line/PICC, Urine Catheter, Skin Breakdown General: Reports: Alert, Oriented, Cooperative, No Acute Distress HEENT: Reports: Pupils Equal, Pupils Reactive, EOMI. Denies: Scleral Icterus Neck: Reports: Supple Lungs: Reports: Clear to Auscultation, Normal Respiratory Effort Cardiovascular: Reports: Regular Rate, Regular Rhythm, No Murmurs. Denies: Tachycardia GI/Abdominal Exam: Normal Bowel Sounds, Soft, Non-Tender. No: Guarding, Rigid, Rebound (Female) Exam: Deferred Rectal (Female) Exam: Deferred Back Exam: Reports: Normal Inspection Extremities: Normal Inspection, Non-Tender, No Pedal Edema, Other Skin: Reports: Dry, Intact Wound/Incisions: Reports: Healing Well, Dressing Dry and Intact Neurological: Reports: No New Focal Deficit Psy/Mental Status: Reports: Alert, Normal Affect, Normal Mood
--- NOTE | 2020-09-24 13:50 | ECHO ---
EXAM DATE: 09/21/20 PATIENT'S AGE: 55 The ECHO report has been scanned into [employer] and can be seen in this patient's EMR (Electronic Medical Record) under the REPORTS section. The report has also been scanned into PACS. JULIET
== END 2020-09-23 11:00 | disposition home or self-care (01) ==
LOC: MW.SDS 17:40 → MW.MS 21:03
PROVIDERS: ADMIT Surgery; ATTEND Surgery
DX: K35.30 Acute appendicitis with localized peritonitis, without perforation or gangrene (principal); I48.91 Unspecified atrial fibrillation; E78.00 Pure hypercholesterolemia, unspecified; K21.9 Gastro-esophageal reflux disease without esophagitis; Z79.899 Other long term (current) drug therapy
CPT/HCPCS: 36415; 44970; 80048; 83735; 84100; 84443; 84484; 85025; 88304; 93005; 93246; 93306; 96365; 96375; 96376; A9270; C1776; G0378; J0131; J0694; J1170; J1885; J2250; J2270; J2405; J2704; J3010; J3475; J3480; J3490; J7120; 00840; J0690